=== PATIENT | female | born 1995 | race Caucasian/White ===

== ENCOUNTER 2016-12-16 12:21 | Emergency (ER) | payer MEDICAID ==
[~2016-12-16] VITALS: Ht 160 cm; Wt 85.7 kg
[~2016-12-16 12:21] MED LIST: COLACE100 M1 PO; FERROUS SULFAT325 MG PO; FOLATE1 MG PO; KEFLEX250 MG PO; PRENATAL VITAMI1 T10 PO; UNKNOWN MED
[2016-12-16 12:50] VITALS: BP 143/111
--- NOTE | 2016-12-16 13:01 | NUR ---
PT AMBULATED TO ER BED 06.
--- NOTE | 2016-12-16 13:06 | NUR ---
PATIENT PRESENTS TO ED DUE TO NOSEBLEED. AND COUGHING X3 WEEKS,PT STATES THIS IS MY SECOND TIME FOR NOSE BLEED. DENIES N/V/D; SKIN IS PINK/WARM/DRY; AAOX4 WITH EVEN AND STEADY GAIT; LUNGS CLEAR BL; HR EVEN AND REGULAR; PT DENIES ANY FEVER, CP, SOB, AT THIS TIME; PATIENT STATES PAIN OF 0/10 AT THIS TIME; PATIENT POSITIONED FOR COMFORT; HOB ELEVATED; BEDRAILS UP X2; BED DOWN. ER MD MADE AWARE OF PT STATUS.
--- NOTE | 2016-12-16 13:38 | NUR ---
Dr. Barbosa evaluating patient at bedside.
[2016-12-16 14:04] VITALS: BP 123/79
--- NOTE | 2016-12-16 14:04 | NUR ---
Patient discharged with v/s stable. Written and verbal after care instructions given and explained. Patient alert, oriented and verbalized understanding of instructions. Ambulatory with steady gait. All questions addressed prior to discharge. ID band removed. Patient advised to follow up with PMD. Rx of CLARITIN AND OXYMETAZOLINE given. Patient educated on indication of medication including possible reaction and side effects. Opportunity to ask questions provided and answered.
== END 2016-12-16 14:04 | disposition home or self-care (01) ==
LOC: MED 12:21
DX: J30.9 Allergic rhinitis, unspecified (principal); R03.0 Elevated blood-pressure reading, without diagnosis of hypertension